=== PATIENT | male | born 1965 | race Caucasian/White ===

== ENCOUNTER 2022-09-03 07:53 | Day surgery (SDC) | payer BC ==
[~2022-09-03] VITALS: Ht 177.8 cm; Wt 88.1 kg
[2022-09-03 08:08] VITALS: BP 147/81
[2022-09-03] MEDS ORDERED: NO HOME MEDS (08:22)
[2022-09-03] MEDS ORDERED: LIDOcaine 1%/PF 5ML 10 MG/ML VIAL SQ ONE (08:25)
[2022-09-03 11:40] VITALS: BP 147/81
== END 2022-09-03 11:40 | disposition home or self-care (01) ==
LOC: SSTAY O 07:53
PROVIDERS: ATTEND Radiology Vascular & Interventional Radiology
DX: R22.1 Localized swelling, mass and lump, neck (principal)
CPT/HCPCS: 10005; 20206; 76942